=== PATIENT | female | born 1995 | race Caucasian/White ===

== ENCOUNTER 2017-05-04 19:04 | Emergency (ER) | payer OTHER ==
[~2017-05-04] VITALS: Ht 170.2 cm; Wt 71.8 kg
[2017-05-04 19:24] VITALS: BP 118/80; RESP 16; O2SAT 98
--- NOTE | 2017-05-04 21:50 | ED.REPORT ---
HPI-General Illness Date of Service May 04, 2017 ED Provider: Ricardo Navarro MD Pt is an otherwise healthy 21 year old female who presents to the ED complaining of bilateral ear pain onset today while swimming. She c/o decreased hearing and pain with swallowing. She denies ear discharge, decreased hearing , tinnitus, and ear bleeding. Pt describes the ear pain as a pressure and reports that "it's like listening through water." Her last menstruation was 1 month ago and normal. She denies . Pt denies frequent swimming, but she was at a pool 1 week ago and she was swimming today; pt was also rafting and jumping from 8ft into water today. Pt reports that she does not have a PCP. She c/o sunburns on her legs bilaterally. Pt reports nasal congestion from seasonal allergies. Nursing Notes Stated Complaint: EAR PAIN Chief Complaint: ENT & Mouth Nursing Notes Reviewed: Yes Allergies: Coded Allergies: latex (Verified Allergy, Mild, 05/04/17) General Time Seen by MD: 21:49 Chief Complaint Ear pain Hx Obtained From: Patient Arrived By: Walk-in Sudden in Onset?: Yes Onset Occurred: Just prior to arrival Symptom Duration: Since onset Past Medical History Past Medical History Denies - Healthy Past Surgical History Denies Social History Other Social History: Good social support Ambulatory Status Independent Review of Systems + Decreased hearing + Pain with swallowing Denies ear bleeding Full Review of Systems Ears / Nose / Throat: Reports: Earache bilateral, Nasal congestion, Denies: Ear drainage bilateral, Ear ringing bilateral Musculoskeletal: Reports: Extremity pain (sunburn) Complete sys rev & neg: except as marked. Physical Exam Vital Signs Vital Signs Date Time Temp Pulse Resp B/P Pulse Ox O2 Delivery O2 Flow Rate FiO2 05/04/17 22:43 89 16 125/65 100 05/04/17 19:24 36.6 87 16 118/80 98 Room Air Initial VS: Reviewed Head / Eyes: Atraumatic, Normocephalic Neck: Supple, Full range of motion Abdomen / GI: Soft Extremities: Vascular intact, Neuro intact Skin: Warm, Dry, No cyanosis Neurologic: Alert, Oriented, Nonfocal Psychiatric: Mood/affect normal, Behavior normal General/Constitutional: Awake, Alert, Cooperative Comfortable appearing. ENT: Atraumatic Pain with pressure on antitragus of left ear. No tenderness of the mastoid. No lymphadenopathy. TMs are intact. Ear canal is edematous without debris or discharge. Lower Extremity / Pelvis / MS: Neurologic intact, Vascular intact Superficial sunburn bilaterally; no blisters. Re-Eval/Medical Decision Source of Hx: Old records Time of Eval: 21:57 Re-Evaluation/Progress Note: Pt rechecked. Informed pt of plan for discharge. Pt understands and agrees with plan for discharge. F/U instructions and RTER warnings given. All questions addressed. Counseled Regarding: Diagnosis, Need for follow-up, When/why to return to ED Discharge & Departure Primary Impression: Otitis externa Otitis externa type: swimmer's ear Laterality: left Chronicity: acute Qualified Code: H60.332 - Swimmer's ear, left ear Additional Impression: Sunburn Disposition: Home Discharge Condition All VS Reviewed: Yes Condition: Stable Patient Instructions: Otitis Externa (ED), Sunburn (ED) Additional Instructions: ED evaluation included interview, exam. There appears to be an external ear infection on the left and blockage of the tubes that equalize pressure across the eardrums. Hydrocodone/apap 1 every 4 hours as needed for pain. Use cortisporin drops to L ear as directed. Use your nasal saline daily and use decongestant nasal spray for 2-3 days- afrin brand name, oxymetazoline is the ingredient you want. Ibuprofen will help pain in ears and sumburn- 600mg 3-4 times a day. Follow up with ENT if symptoms are not resolved in 2 days. Referrals: Raúl Vazquez MD Attestation Portions of this note were transcribed by Trang Bates. I, Dr. Navarro personally performed the history, physical exam and medical decision-making; I reviewed and confirmed the accuracy of the information in the transcribed note. Signed by : Lilo Gutierres, 05/05/17 and 00:50. copies to: Raúl Vazquez MD, Donald L MD May 04, 2017 21:50 Trang Roblero May 04, 2017 21:58
[2017-05-04] MEDS ORDERED: _HYDROcodone/APAP 5-325 mg Tablet PO PRN (22:05)
[2017-05-04 22:43] VITALS: BP 125/65; PULSE 89; RESP 16; O2SAT 100
[2017-05-05] MEDS ORDERED: _Neomy/Polymyxin/H-cort OTIC Susp 10 mL AFFECT_EAR SCH (06:30)
== END 2017-05-04 22:45 | disposition home or self-care (01) ==
LOC: SED 19:04
DX: H60.332 Swimmer's ear, left ear (principal); L55.9 Sunburn, unspecified; Z91.040 Latex allergy status